=== PATIENT | male | born 1970 | race Caucasian/White ===

== ENCOUNTER 2016-05-09 07:32 | Outpatient (CLI) | payer BC ==
--- NOTE | 2016-05-09 09:30 | DIAGNOSTIC IMAGING REPORT ---
PROCEDURE: CT ABD/PELVIS WITH CONTRAST CLINICAL INDICATION: Left lower quadrant pain x 2 weeks, initial encounter TECHNIQUE: 125 ml of Isovue 300 were injected intravenously and axial images were obtained of the entire abdomen and pelvis with sagittal and coronal reformations. COMPARISON: None. FINDINGS: ABDOMEN: Lung base are clear. Heart size is normal. There are three hypoenhancing hepatic lesions, largest 7 mm, indeterminate but likely benign. The gallbladder, pancreas, spleen, adrenal glands and kidneys are normal. Normal abdominal aorta. Nonspecific bowel gas pattern PELVIS: Normal appendix. No pelvic mass, inflammatory changes or free fluid. Normal prostate and bladder. Bones are unremarkable. IMPRESSION: 1. Negative CT abdomen/pelvis All CT scans at this facility use dose modulation, iterative reconstruction, and/or weight-based dosing when appropriate to reduce radiation dose to as low as reasonably achievable.
[2016-06-18] MEDS ORDERED: OMEPRAZOLE20 M1 PO (12:27)
== END 2016-05-09 23:00 ==
LOC: EDBD 07:32 → CT SRH 07:32
DX: R10.32 Left lower quadrant pain (principal)

== ENCOUNTER 2016-06-23 07:13 | Day surgery (SDC) | payer BC ==
[~2016-06-23] VITALS: Ht 182.9 cm; Wt 97.0 kg
[~2016-06-23 07:13] MED LIST: OMEPRAZOLE20 M1 PO
[2016-06-23] MEDS ORDERED: CARAFATE E1 GM/10 ML PO (09:11)
--- NOTE | 2016-06-23 09:13 | Provider's Discharge Care Plan ---
Problem, Goal, Plan Problem List 1. S/P EGD Goals: Diagnostic testing, Improve disease control Instructions: Follow up as needed, Take meds as directed 2. S/P colonoscopy Goals: Screening Instructions: Follow up as directed, high fibe diet
--- NOTE | 2016-06-23 09:49 | OPERATIVE REPORT ---
DATE OF SURGERY: 06/23/2016 SURGEON: Pat Chan III, MD FINISH OPENER: None. PREOPERATIVE DIAGNOSES: 1. Family history of gastric cancer 2. Family history of colon cancer POSTOPERATIVE DIAGNOSES: 1. Normal colonoscopy 2. Upper gastrointestinal endoscopy 3. Hiatal hernia 4. Fundic ulcer ANESTHESIA: TIVA. INDICATIONS: The patient is a 45-year-old male with a family history of colon cancer and gastric cancer. The patient has a history of intermittent dyspepsia, ameliorated with proton pump inhibitors. The patient's sister had a history of gastric cancer. The patient's father had colon cancer. SURGICAL FINDINGS: Normal-appearing cecum, ascending, transverse, descending colon, sigmoid colon, and rectal vault. Upper gastrointestinal endoscopy with normal- appearing duodenum and duodenal bulb. The gastric mucosal pattern appeared grossly normal except for the area high in the fundus just below the EG junction where a superficial ulcer was identified. The patient was noted to have a sliding hiatal hernia of the esophagus. The EG junction was approximately 38 cm from dental incisors. The remaining esophagus appeared grossly normal. SURGICAL TECHNIQUE: The patient was brought to the operating room and placed in the left lateral decubitus position, where he was administered TIVA and monitored closely by anesthesia. After proper anesthesia had taken effect, a digital rectal examination revealed no masses or stenosis. This was followed by the passage of a fiberoptic video flexible Olympus colonoscope, which, without difficulty, negotiated to the cecum. The cecum was identified by anatomical landmarks and anterior abdominal wall ballottement. On withdrawing the scope, the aforementioned findings noted. The scope was withdrawn, retroflexed, good view of the rectal vault obtained. No pathology identified. The scope was completely withdrawn. The patient tolerated that portion of the procedure well. With the patient still under TIVA in the left lateral decubitus position, his posterior pharynx was sprayed with Cetacaine spray, after which an Olympus fiberoptic video flexible upper GI endoscope was passed down the patient's posterior pharynx. The esophagus intubated under direct visualization. The scope passed easily down through the EG junction, which was approximately 38 cm from the dental incisors, through the hiatal hernia, into the gastric lumen and eventually into the second and third portion of the duodenum. On withdrawing the scope, the aforementioned findings noted. The scope was withdrawn into the gastric lumen where it was retroflexed with a good view of the cardia, fundus, and EG junction from below, as well as the greater and lesser curvature. The superficial ulcer identified high in the fundic region was identified. Multiple random biopsies were obtained in this area to rule out H. pylori. The scope was withdrawn through the EG junction, where multiple random biopsies were obtained of the distal esophagus to rule out occult Mac's. The scope was completely withdrawn. The patient tolerated the procedure well and was transferred to the recovery room in stable condition. There were no intraoperative or anesthetic complications.
[2016-06-23 11:16] VITALS: BP 120/81
== END 2016-06-23 11:25 | disposition home or self-care (01) ==
LOC: OR SRH 07:13 → OB SRH 07:14 → OR SRH 09:00
PROVIDERS: Specialist
PROC: 0DJD8ZZ Inspection of Lower Intestinal Tract, Via Natural or Artificial Opening Endoscopic (ICD-10-PCS; principal; 2016-06-23 09:00)
PROC: 0DB68ZX Excision of Stomach, Via Natural or Artificial Opening Endoscopic, Diagnostic (ICD-10-PCS; principal; 2016-06-23 09:00)
PROC: 0DB38ZX Excision of Lower Esophagus, Via Natural or Artificial Opening Endoscopic, Diagnostic (ICD-10-PCS; principal; 2016-06-23 09:00)
DX: Z80.0 Family history of malignant neoplasm of digestive organs (principal); Z12.11 Encounter for screening for malignant neoplasm of colon; K44.9 Diaphragmatic hernia without obstruction or gangrene; K25.7 Chronic gastric ulcer without hemorrhage or perforation